=== PATIENT | female | born 1970 | race Caucasian/White ===

== ENCOUNTER → 2019-01-26 | Day surgery (SDC) | payer BC ==
--- OUTSIDE RECORDS SUMMARY | 2019-01-26 09:35 | XMS REPORT ---
:1970 [facility] Address [address] [place] [address] [address]. [address] [place] [address] Care Team Providers Name Role Phone KRISTI DIAZ Unavailable Unavailable Problems This patient has no known problems. Allergies, Adverse Reactions, Alerts This patient has no known allergies or adverse reactions. Medications This patient has no known medications. Results Test Description Test Time Test Comments Text Results Atomic Results Result Comments MM, U/S, BIOPSY, 2017-02-26 Reason for Addendum BeginsN#: BREAST, RIGHT 14:31:00 Exam:->breast mass [id number]: 02/26/2017 Derrek Ferrer M.D. The results (intraductal papilloma) and recommendations for surgical consult were relayed with Dr Hurt's welding equipment sales representative Cathy on 02/25/17 at 7216. Addendum EndsN#: [id number] - MM, U/S, BIOPSY, BREAST, RIGHTULTRASOUND GUIDED BIOPSY RIGHT BREAST WITH MARKING DEVICES INSERTED AND POST DIGITAL MAMMOGRAPHIC IMAGIN02/09/2017PATIENT CONSENT: The procedure, risks and benefits, alternatives were discussed with the patient. Informed consent was obtained. A time-out was performed. An ultrasound guided biopsy using real-time ultrasound was performed for the mass located in the right breast at 10 o'clock middle depth. This was described on the previous ultrasound report. The skin was prepped in the usual manner. Local anesthetic was administered to the access site. A skin keyana was made in the breast. A 14 gauge biopsy needle was placed adjacent to the abnormality under ultrasound guidance. Once the needle was documented to be in the correct location, two specimens were obtained using an Achieve automated firing device. Two clips were inserted into the biopsy cavity. A pressure dressing was applied to the access site. Post procedure digital mammographic imaging was obtained. The specimens were sent to the laboratory for pathological analysis. IMPRESSION: ULTRASOUND GUIDED BIOPSYUltrasound guided biopsy of the mass in the right breast at 10 o'clock middle depth with placement of two clips was successful with no apparent post procedure complications. Derrek Ferrer M.D. pth/:02/09/2017 15:48:27 Grey Roll Worker: Gladys Soliz Apartment Rental Agent, [facility] [id number] , U/S, BIOPSY, 2017-02-26 Reason for Addendum BeginsMRN#: BREAST, RIGHT 14:31:00 Exam:->breast mass [id number]: 02/26/2017 Derrek Ferrer M.D. The results (intraductal papilloma) and recommendations for surgical consult were relayed with Dr Hurt's welding equipment sales representative Cathy on 02/25/17 at 1357. Addendum EndsN#: [id number] - MM, U/S, BIOPSY, BREAST, RIGHTULTRASOUND GUIDED BIOPSY RIGHT BREAST WITH MARKING DEVICE INSERTED AND POST DIGITAL MAMMOGRAPHIC IMAGIN02/09/2017PATIENT CONSENT: The procedure, risks and benefits, alternatives were discussed with the patient. Informed consent was obtained. A time-out was performed. Comparison is made to exam dated: 02/03/2017 ultrasound - [facility]. An ultrasound guided biopsy using real-time ultrasound was performed for the mass located in the right breast at 10 o'clock in the retroareolar region. This was described on the previous ultrasound report. The skin was prepped in the usual manner. Local anesthetic was administered to the access site. A skin keyana was made in the breast. The abnormality was approached from the medial aspect. A 14 gauge biopsy needle was placed adjacent to the abnormality under ultrasound guidance. Once the needle was documented to be in the correct location, three specimens were obtained using an Achieve automated firing device. A clip was inserted into the biopsy cavity. Post procedure digital mammographic imaging demonstrates the clip at the targeted area. The specimens were sent to the laboratory for pathological analysis. IMPRESSION: ULTRASOUND GUIDED BIOPSYUltrasound guided biopsy of the mass in the right breast at 10 o'clock in the retroareolar region was successful with no apparent post procedure complications. Derrek Ferrer M.D. pth/penrad:02/09/2017 15:47:12 Grey Roll Worker: Gladys Soliz Apartment Rental Agent, [facility] [id number] UE EXAM 2017-02-12 Surgical Pathology Report 16:51:00 Case: [id number] Authorizing Provider: Derrek Ferrer MD Collected: 02/09/2017 1525 Ordering Location: [facility] Received: 02/10/2017 0828 Pathologist: Guillermina Chowdhury MD Specimens: A) - Breast, Right, Breast, Right 10:00 B) - Breast, Right, Breast, Rt 12:00 A. BREAST, RIGHT, 10 O'CLOCK, ULTRASOUND GUIDED CORE BIOPSY: - INTRADUCTAL PAPILLOMA - CONTAINING USUAL DUCTAL HYPERPLASIA - ASSOCIATED WITH FOCAL CALCIFICATIONSB. BREAST, RIGHT, 10 O'CLOCK, MASS #2, ULTRASOUND GUIDED CORE BIOPSY: - SMALL FRAGMENT CONSISTENT WITH AN INTRADUCTAL PAPILLOMA - COLUMNAR CELL CHANGES, FOCAL - USUAL DUCTAL HYPERPLASIA, FOCAL Signing Pathologist Direct Phone Line: [phone] electronically signed by Guillermina Chowdhury MD on 02/12/2017 at 4:51 PM A. [id number] X 1B. [id number] X 1Questionable papillary lesionA. Ultrasound right breast biopsy, anterior 10:00; B. Ultrasound right breast biopsy middle 10:00The specimen is received in two containers of formalin both labeled with the patient's information.Specimen A labeled "right breast biopsy anterior 10:00" consists of three yellow-white core biopsies ranging in length from 0.6 to 1.2 cm. Ink code: black. The specimen is entirely submitted A1. Specimen B labeled "right breast biopsy middle 10:00" complains of two off white breast core biopsies ranging from 1 to 1.7 cm in length. Ink code: blue. The specimen is entirely submitted B1. CG/pl A-B: Performed.[facility], Department of Pathology, [address] [place] [address], [place] [address], MM, DIGITAL, 2017-02-09 right breast masses #[id number] - UNILATERAL, 15:39:00 MM, DIGITAL, UNILATERAL, CONFER EDUARDO, CONFER EDUARDO, MAMMO, RIGHT MAMMO, RIGHT INCLUDING CADUNILATERAL INCLUDING CAD RIGHT DIGITAL PROBLEM SOLVING MAMMOGRAM POST-PROCEDURE IMAGING FOR MARKER PLACEMENT: 02/09/2017 The tissue of the right breast is heterogeneously dense. This may lower the sensitivity of mammography. Two biopsy markers are present in the right breast in the areas of the biopsy. IMPRESSION: POST PROCEDURE MAMMOGRAM FOR MARKER PLACEMENTSuccessful uncomplicated ultrasound guided biopsy of the right breast masses and marker placement. Pathology result is pending. Drerek Ferrer M.D. pth/:02/09/2017 15:39:38 Grey Roll Worker: Emily Hansen RT(R)(M), [facility] Mammogram BI-RADS: Post-procedure mammogram for marker placement [id number] , U/S, BREAST, 2017-02-03 Reason for #[id number] - UNILATERAL, RIGHT 16:07:00 Exam:->n63,n64.52Loca MM, U/S, BREAST, tion->[facility] Medical [facility] RIGHT BREAST: 02/03/2017 Color flow and real-time ultrasound of the right breast were performed. Ultrasound of all four quadrants and the retroareolar breast was performed. Soto scale images of the real-time examination were reviewed.The patient has been scheduled for right ductogram for evaluation of her spontaneous right serous nipple discharge. Multiple unsuccessful attempts to cannulate the right upper outer discharging duct were performed. The patient was then transferred to ultrasound. There is a corresponding dilated duct with 8mm intraductal mass at the right subareolar 10 o'clock breast in addition to a 6mm lobular hypoechoic mass at the 10 o'clock position, 3cm from the nipple. IMPRESSION: SUSPICIOUS OF MALIGNANCY - FOLLOW-UP RECOMMENDEDThe findings and recommendations for ultrasound guided biopsy of both right 10 o'clock breast masses have been discussed with the patient and her . Derrek Ferrer M.D. pth/:02/03/2017 16:07:06 Biopsy Required Ultrasound BI-RADS: 4b Suspicious abnormality - intermediate suspicion of malignancy [id number]
--- OUTSIDE RECORDS SUMMARY | 2019-01-26 09:35 | XMS REPORT | Clinical Summary ---
:1970 Author Organization [facility] Address [address] [place] [address] Care Team Providers Name Role Phone Wiliam Patten MD Primary Care Provider Allergies Active Allergy Reactions Severity Noted Date Comments Penicillins 09/03/1999 Medications Medication Sig Dispensed Refills Start End Status Date Date cetirizine (ZyrTEC) 10 Take 10 mg by 0 Active MG tablet mouth daily. meloxicam (MOBIC) 15 Take 1 tablet 30 tablet 0 03/10/20 Active mg tablet (15 mg total) 18 019 by mouth daily. diphenhydrAMINE Take 25 mg by 0 Discontinued (BENADRYL) 25 mg mouth. 018 (Error) capsule methylPREDNISolone Take 1 tablet 21 tablet 0 03/10/20 (MEDROL DOSEPAK) 4 mg (4 mg total) by 18 018 tablet mouth See Admin Instructions for 5 days. 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 Last Filed Vital Signs Vital Sign Reading Time Taken Comments Blood Pressure - - Pulse - - Temperature - - Respiratory Rate - - Oxygen Saturation - - Inhaled Oxygen Concentration - - Weight 65.8 kg (145 lb) 03/10/2018 2:59 PM CDT Height 167.6 cm (5' 6") 03/10/2018 2:59 PM CDT Body Mass Index 23.4 03/10/2018 2:59 PM CDT Plan of Treatment Health Maintenance Due Date Last Done Comments CERVICAL CANCER SCREENING 09/06/1991 INFLUENZA VACCINE 12/23/2018 Procedures Procedure Name Priority Date/Time Associated Diagnosis Comments XR PELVIS 1 OR 2 Routine 03/10/2018 2:52 Femoroacetabular Results for this VW PM CDT impingement of right hip procedure are in the results section. after 01/25/2018 Results XR Pelvis 1 Or 2 Vw (03/10/2018 2:52 PM CDT) Specimen Narrative Performed At [facility] pelvis and lateral x-ray of the right hip shows mild arthritic changes. [facility] There is possible mild dysplasia. Performing Organization Address City/State/[facility] Phone Number [facility] [address] [place] [address] after 01/25/2018 Advance Directives For more information, please contact: [phone] Type Date Recorded Patient [employer] Explanation Advance Directives, Living Will and Medical Power of Transport Nurse
--- OUTSIDE RECORDS SUMMARY | 2019-01-26 09:35 | XMS REPORT | Clinical Summary ---
:1970 Author Organization [facility] Address [address] [place] [address] Care Team Providers Name Role Phone Pcp, No Primary Care Provider Unavailable Allergies Active Allergy Reactions Severity Noted Date Comments Penicillins Hives 09/03/1999 Medications Medication Sig Dispensed Refills Start Date End Date Status diphenhydrAMINE Take 25 mg by 0 Active (BENADRYL) 25 mg capsule mouth daily. Active Problems Not on file Social History Tobacco Use Types Packs/Day Years Used Date Never Smoker Smokeless Tobacco: Never Used Sex Assigned at Date Recorded Not on file Job Start Date Occupation Industry Not on file Not on file Not on file Travel History Travel Start Travel End No recent travel history available. Last Filed Vital Signs Not on file Plan of Treatment Not on file Results Not on fileafter 01/25/2018 Insurance Payer Benefit Plan / Group Subscriber ID Type Phone Address [employer] HMO POS QPOS xxxxxxxxxx HMO/POS (Home) [address] [place] [phone]
--- NOTE | 2019-01-26 11:46 | RAD REPORT ---
EXAM DESCRIPTION: US - Breast Core BX w/US Guidance - 01/26/2019 10:53 am CLINICAL HISTORY: N63.20 COMPARISON: Mammogram and ultrasound studies January 17 TECHNIQUE: The patient presents for ultrasound-guided biopsy of a previously detailed 6-7 mm mass in the lower inner quadrant of the left breast. The ultrasound-guided core biopsy procedure, risks and alternatives were discussed with the patient i n detail. After answering all questions, both oral and written consent were obtained. Time out proced ure was performed. The patient had no contraindicated allergy or medication history. The patient was normotensive at the time of the study. Preliminary imaging identified mass in question. The anterior breast was prepped and draped in the us ual sterile fashion. From an inferior approach, skin and deeper tissues were anesthetized with 1% lid ocaine. Under direct sonographic visualization a 14 gauge vacuum assisted core biopsy needle was adva nced and placed at the inferior margin of the mass. There were a total of 3 core biopsies obtained un collette direct sonographic guidance. The mass shows significant distortion in contour following the biops ies indicating the should be good sampling of the mass in question. At the conclusion of the procedure a localization clip was placed under sonographic guidance. All obtained material was given to pathology for systolic GE/histology evaluation. Post biopsy imaging showed no hematoma or measurable bleeding within the breast. Hemostasis was obtai bobby at the skin site with a sterile bandage placed. Post procedure care and precaution instructions were given to the patient. IMPRESSION: 1. Ultrasound-guided core biopsy was performed of the left breast lower inner quadrant m ass. All obtained material was given to pathology for histologic assessment. 2. Post biopsy localization clip was placed under ultrasound guidance.
== END ==
LOC: DS 09:33
PROVIDERS: ATTEND Specialist
DX: D24.2 Benign neoplasm of left breast (principal)
CPT/HCPCS: 19083; 88305